=== PATIENT | male | born 1975 | race Caucasian/White ===

== ENCOUNTER 2019-09-01 19:52 | Inpatient (IN) ==
[2019-09-01] MEDS ORDERED: Furosemide 40 MG/4 ML VIAL IVP ONE (20:04)
[2019-09-01] MEDS ORDERED: Aspirin 81 MG TAB.CHEW PO STA (20:22)
[2019-09-01 20:31] LABS: Red Cell Distribution Width 17.8 % (11.5-14.5)
[2019-09-01 20:33] LABS: Hematocrit 53.4 % (37.5-50.1); Immature Platelets 8.5 % (1.1-6.1)
[2019-09-01 20:34] LABS: VBG HCO3 30 mEq/L (21-27); VBG PCO2 100 mmHg (41-51); VBG PH 7.08 pH Units (7.32-7.42); VBG PO2 45 mmHg (25-50)
[2019-09-01] MEDS ORDERED: Isovue-370 500 ML BOTTLE IVP ONE (20:47)
[2019-09-01 20:55] LABS: Hemoglobin 14.3 g/dL (12.9-16.9); Mean Corpuscular HGB Conc 26.8 g/dL (31.6-35.5); Mean Corpuscular Hemoglobin 24.7 pg (28.0-33.3); Mean Corpuscular Volume 92.2 fL (83.0-100.0); Mean Platelet Volume 10.4 fL (9.4-12.4); Nucleated Red Blood Cells 1.9 /100 WBC (0); Platelet Count 85 K/mcL (140-400); Red Blood Count 5.79 M/mcL (4.19-5.50); White Blood Count 16.2 K/mcL (4.3-11.1)
[2019-09-01 20:58] LABS: Calcium 8.4 mg/dL (8.6-10.3); Potassium 5.4 mEq/L (3.5-5.1); Troponin I 0.84 ng/mL (< 0.04)
[2019-09-01 20:59] LABS: Lymphocytes # 1.3 K/mcL (0.6-4.6); Monocytes # 0.7 K/mcL (0.0-1.3); Neutrophils # 13.9 K/mcL (1.6-8.9)
[2019-09-01 21:01] LABS: Platelet Estimate Decreased (Normal)
[2019-09-01 21:02] LABS: Hypochromasia Present (Not Present); Large Platelets Present (Not Present)
[2019-09-01 21:09] LABS: D-Dimer 54707 ng/mLFEU (0-500)
[2019-09-01] MEDS ORDERED: *HR* Heparin 5,000 UNIT/ML VIAL IVP ONE (21:12)
[2019-09-01] MEDS ORDERED: *HR* Heparin 5,000 UNIT/ML VIAL IVP PRN ×2 (21:12)
[2019-09-01] MEDS ORDERED: Heparin 25,000 UNIT/250 ML D5W 25,000 UNIT/250 ML IV.SOLN IVC SCH (21:15)
[2019-09-01 21:16] LABS: Bilirubin,Urine Small (Negative); Blood,Urine Moderate (Negative); Clarity,Urine Turbid (Clear); Color,Urine Dark Yellow (Yellow); Glucose,Urine (UA) Normal (Normal); Ketones,Urine Negative (Negative); Leukocyte Esterase,Urine Negative (Negative); Nitrite,Urine Negative (Negative); Protein,Urine 100 mg/dL (Neg-Trace); Specific Gravity,Urine 1.017 (1.010-1.025); Urobilinogen,Urine Normal (Normal)
[2019-09-01 21:19] LABS: RBC,Urine 0-3 per hpf (0-3); Squamous Epithelial Cell,Urine Many per lpf (None-Few); WBC,Urine 30-50 per hpf (0-3)
[2019-09-01 21:31] LABS: Amorphous Sediment,Urine Moderate per hpf (Few); Bacteria,Urine Few per hpf (None-Few)
[2019-09-01 21:31] LABS: Heparin anti-factor XA UFH < 0.04 IU/mL (0.30-0.70); INR 2.4; Prothrombin Time 27.3 Seconds (9.4-12.1)
[2019-09-01 21:32] LABS: Hyaline Casts,Urine Few per lpf (None-Few)
[2019-09-01 21:33] LABS: Waxy Casts,Urine Few per lpf (None Seen)
[2019-09-01 21:34] LABS: Activated Partial Thrombo Time 34.2 Seconds (26.0-36.0)
[2019-09-01] MEDS ORDERED: cefTRIAXone 1,000 MG in Water for inj. (sterile) 10 ML IVP ONE (21:35)
[2019-09-01] MEDS ORDERED: Azithromycin 500 MG in 0.9 % Sodium Chloride 250 ML IVPB ONE (21:36)
[2019-09-01 22:10] LABS: Albumin 3.3 g/dL (3.5-5.7); Albumin/Globulin Ratio 0.7 (1.1-2.2); Bilirubin,Indirect 1.1 mg/dL (0.0-1.0); Bilirubin,Total 3.1 mg/dL (0.3-1.0); Globulin 4.7 g/dL (2.4-3.5)
[2019-09-01 22:15] LABS: ABG Base Excess -1 mEq/L (-2 to 3); ABG HCO3 33 mEq/L (21-27); ABG Oxygen Saturation 99 % (95-98); ABG PCO2 99 mmHg (35-45); ABG PH 7.13 pH Units (7.32-7.45); ABG PO2 172 mmHg (85-104); ABG TCO2 36 mEq/L (20-26); Blood Gas VT 500 cc
[2019-09-01] MEDS ORDERED: Amiodarone Premix 360 MG/200 ML BAG IVC ONE (23:17)
[2019-09-01] MEDS ORDERED: Amiodarone Premix 150 MG/100 ML BAG IVPB ONE (23:17)
[2019-09-01] MEDS ORDERED: Ketamine *HR* 500 MG/10 ML MDV ONE (23:22)
[2019-09-01] MEDS ORDERED: Tetracaine/Benzocaine/Butamben 1 SPRAY AEROSOL MM ONE (23:33)
[2019-09-01] MEDS ORDERED: 0.9 % Sodium Chloride 1,000 ML ONE (23:47)
[2019-09-01] MEDS ORDERED: *HR* Midazolam HCl 5 MG/5 ML VIAL IVP ONE (23:47)
[2019-09-01] MEDS ORDERED: *HR* FentaNYL (PF) 100 MCG/2 ML VIAL ONE (23:53)
[2019-09-02] MEDS ORDERED: 0.9 % Sodium Chloride 1,000 ML ONE (01:12)
[2019-09-02] MEDS ORDERED: EPINEPHrine 1 MG in D5% in Water 250 ML IVC SCH (01:30)
[2019-09-02] MEDS ORDERED: FentaNYL (PF) 1,000 MCG in 0.9 % Sodium Chloride 80 ML IVC SCH (01:30)
[2019-09-02 01:43] LABS: Basophils % 0.2 %
[2019-09-02 01:45] LABS: Eosinophils % 0.2 %; Hematocrit 50.9 % (37.5-50.1); Immature Platelets 8.3 % (1.1-6.1); Lymphocytes # 2.8 K/mcL (0.6-4.6); Mean Corpuscular HGB Conc 27.5 g/dL (31.6-35.5); Mean Corpuscular Hemoglobin 25.1 pg (28.0-33.3); Mean Corpuscular Volume 91.4 fL (83.0-100.0); Mean Platelet Volume 11.3 fL (9.4-12.4); Monocytes # 2.1 K/mcL (0.0-1.3); Monocytes % 8.2 %; Nucleated Red Blood Cells 2.2 /100 WBC (0); Platelet Count 105 K/mcL (140-400); Red Blood Count 5.57 M/mcL (4.19-5.50); Red Cell Distribution Width 17.5 % (11.5-14.5); Segmented Neutrophils % 73.4 %; White Blood Count 25.4 K/mcL (4.3-11.1)
[2019-09-02 01:47] LABS: Basophils # 0.1 K/mcL (0.0-0.2); Eosinophils # 0.1 K/mcL (0.0-0.6); Neutrophils # 18.6 K/mcL (1.6-8.9)
[2019-09-02 01:52] LABS: ABG Base Excess 0 mEq/L (-2 to 3); ABG HCO3 33 mEq/L (21-27); ABG Oxygen Saturation 93 % (95-98); ABG PCO2 94 mmHg (35-45); ABG PH 7.15 pH Units (7.32-7.45); ABG PO2 90 mmHg (85-104); ABG TCO2 36 mEq/L (20-26); Blood Gas Modality ASSIST CONTROL; Blood Gas VT 500 cc
[2019-09-02] MEDS ORDERED: Vancomycin 2,000 MG/520 ML IV.SOLN IVPB ONE (02:00)
[2019-09-02 02:07] LABS: Anisocytosis 1+ (Not Present); Hypochromasia Present (Not Present); Platelet Estimate Slight Decrease (Normal); Polychromasia 1+ (Not Present)
[2019-09-02 02:48] LABS: Albumin 3.2 g/dL (3.5-5.7); Albumin/Globulin Ratio 0.7 (1.1-2.2); Calcium 8.3 mg/dL (8.6-10.3); Globulin 4.3 g/dL (2.4-3.5); Potassium 5.5 mEq/L (3.5-5.1); Total Protein 7.5 g/dL (6.4-8.9); Troponin I 1.23 ng/mL (< 0.04)
[2019-09-02 03:14] LABS: Magnesium 2.6 mg/dL (1.6-2.6)
[2019-09-02] MEDS ORDERED: *HR* Dextrose 50 % in Water (Syg) 50 ML SYRINGE IVP ONE (03:23)
[2019-09-02] MEDS ORDERED: Insulin Regular, Human 100 UNIT/ML SQ ONE (03:23)
[2019-09-02 03:25] VITALS: BP 104/63
== END 2019-09-02 04:10 | disposition short-term general hospital (02) | DRG 871 ==
LOC: EMEROOARM 19:52 → ICNU 09-02 02:31
PROVIDERS: ADMIT Internal Medicine; ATTEND Internal Medicine

== ENCOUNTER 2020-12-14 00:28 | Inpatient (IN) ==
[2020-12-14 02:00] LABS: Eosinophils % 0.7 %; Mean Corpuscular Volume 97.4 fL (83.0-100.0); Platelet Count 161 K/mcL (140-400)
[2020-12-14 02:01] LABS: Basophils % 0.3 %; Eosinophils # 0.1 K/mcL (0.0-0.6); Hematocrit 36.9 % (37.5-50.1); Hemoglobin 10.3 g/dL (12.9-16.9); Immature Granulocytes % 1.7 % (0-4); Lymphocytes # 1.1 K/mcL (0.6-4.6); Lymphocytes % 8.7 %; Mean Corpuscular HGB Conc 27.9 g/dL (31.6-35.5); Mean Corpuscular Hemoglobin 27.2 pg (28.0-33.3); Mean Platelet Volume 9.1 fL (9.4-12.4); Monocytes # 0.7 K/mcL (0.0-1.3); Monocytes % 5.3 %; Red Blood Count 3.79 M/mcL (4.19-5.50); Segmented Neutrophils % 83.3 %; White Blood Count 12.2 K/mcL (4.3-11.1)
[2020-12-14 02:02] LABS: Neutrophils # 10.2 K/mcL (1.6-8.9)
[2020-12-14] MEDS ORDERED: Furosemide 20 MG/2 ML VIAL IVP ONE ×2 (02:09→03:41)
[2020-12-14 02:10] LABS: INR 1.2; Prothrombin Time 14.2 Seconds (9.4-12.1)
[2020-12-14 02:12] LABS: Activated Partial Thrombo Time 33.1 Seconds (26.0-36.0)
[2020-12-14 02:30] LABS: BUN/Creatinine Ratio 15 (6-26); Blood Urea Nitrogen 22 mg/dL (6-20); Calcium 9.4 mg/dL (8.6-10.3); Carbon Dioxide > 45 mEq/L (23-29); Chloride 79 mEq/L (98-107); Glucose 274 mg/dL (70-105); Lipase 15 Units/L (11-82); Osmolality,Calculated 299 (280-300); Potassium 3.5 mEq/L (3.5-5.1); Sodium 138 mEq/L (136-145); Troponin I < 0.03 ng/mL (< 0.04); eGFR For African Americans > 60 (> 60); eGFR For Non-African Americans 52 (> 60)
[2020-12-14 02:58] LABS: ABG Base Excess > 30 mEq/L (-2 to 3); ABG HCO3 69 mEq/L (21-27); ABG Oxygen Saturation 96 % (95-98); ABG PCO2 107 mmHg (35-45); ABG PH 7.42 pH Units (7.32-7.45); ABG PO2 89 mmHg (85-104); ABG TCO2 > 50 mEq/L (20-26)
[2020-12-14 04:25] LABS: Bilirubin,Urine Negative (Negative); Blood,Urine Trace (Negative); Clarity,Urine Clear (Clear); Color,Urine Colorless (Yellow); Glucose,Urine (UA) 100 mg/dL (Normal); Ketones,Urine Negative (Negative); Leukocyte Esterase,Urine Negative (Negative); Mucus,Urine Few per lpf (None-Few); Nitrite,Urine Negative (Negative); Protein,Urine 30 mg/dL (Neg-Trace); RBC,Urine 0-3 per hpf (0-3); Specific Gravity,Urine 1.012 (1.010-1.025); Squamous Epithelial Cell,Urine Few per hpf (None-Few); Urobilinogen,Urine Normal (Normal)
[2020-12-14] MEDS ORDERED: Naloxone 0.4 MG/ML INJ IVP PRN (04:59)
[2020-12-14] MEDS ORDERED: *HR* HYDROcodone/Acet 5/325 mg TABLET PO PRN (04:59)
[2020-12-14] MEDS ORDERED: Acetaminophen 325 MG TABLET PO PRN (04:59)
[2020-12-14] MEDS ORDERED: D5% in Water 1,000 ML IVC PRN (05:03)
[2020-12-14] MEDS ORDERED: Dextrose Gel 15 GM/37.5 ML TUBE PO PRN ×2 (05:03)
[2020-12-14] MEDS ORDERED: *HR* Dextrose 50 % in Water (Vial) 50 ML VIAL IVP PRN (05:03)
[2020-12-14] MEDS ORDERED: Perflutren Lipid Microsphere 1.3 ML in 0.9 % Sodium Chloride 8.7 ML IVP PRN (05:04)
[2020-12-14] MEDS: Insulin LISPRO 300 UNITS/3 ML VIAL SUBQ SCH ×5 (07:11→23:36)
[2020-12-14] MEDS: Azithromycin 500 MG in 0.9 % Sodium Chloride 250 ML IVPB SCH (07:12)
[2020-12-14] MEDS: *HR* Heparin 5,000 UNIT/ML VIAL SQ SCH ×3 (07:13→20:58)
[2020-12-14 07:21] LABS: ABG Base Excess 25 mEq/L (-2 to 3); ABG HCO3 62 mEq/L (21-27); ABG Oxygen Saturation 91 % (95-98); ABG PCO2 124 mmHg (35-45); ABG PH 7.31 pH Units (7.32-7.45); ABG PO2 77 mmHg (85-104); ABG TCO2 > 50 mEq/L (20-26); Blood Gas Modality avaps; Blood Gas VT 500 cc
[2020-12-14 07:33] LABS: Chol/HDL Ratio 5.2 (0-4.9); Magnesium 2.3 mg/dL (1.6-2.6); Phosphorous 3.5 mg/dL (2.7-4.5)
[2020-12-14 07:34] LABS: Albumin 3.5 g/dL (3.5-5.7); Albumin/Globulin Ratio 0.7 (1.1-2.2); Bilirubin,Indirect 0.6 mg/dL (0.0-1.0); Bilirubin,Total 0.6 mg/dL (0.3-1.0); Globulin 4.8 g/dL (2.4-3.5); Total Protein 8.3 g/dL (6.4-8.9)
[2020-12-14 07:56] LABS: Folate 7.6 ng/mL (3.0-16.0)
[2020-12-14] MEDS: Furosemide 40 MG/4 ML VIAL IVP SCH ×2 (08:17→20:52)
[2020-12-14] MEDS ORDERED: methylPREDNISolone 125 MG/2 ML VIAL IVP ONE (08:59)
[2020-12-14] MEDS ORDERED: ALPRAZolam 0.25 MG TABLET PO ONE (08:59)
[2020-12-14] MEDS ORDERED: levoFLOXacin 750 MG/150 ML 750 MG/150 ML BAG IVPB SCH (09:00)
[2020-12-14] MEDS ORDERED: Furosemide 20 MG/2 ML VIAL IVP SCH (09:00)
[2020-12-14] MEDS ORDERED: Furosemide 40 MG/4 ML VIAL IVP SCH (09:00)
[2020-12-14 10:26] LABS: Estimated Average Glucose 203 mg/dl; Hemoglobin A1C 8.7 %
[2020-12-14 11:12] LABS: Procalcitonin 0.21 ng/mL (0.00-0.15)
[2020-12-14 13:08] LABS: ABG Base Excess > 30 mEq/L (-2 to 3); ABG HCO3 74 mEq/L (21-27); ABG Oxygen Saturation 72 % (95-98); ABG PCO2 101 mmHg (35-45); ABG PH 7.47 pH Units (7.32-7.45); ABG PO2 40 mmHg (85-104); ABG TCO2 > 50 mEq/L (20-26); Blood Gas Modality BiLevel; Blood Gas VT 500 cc
[2020-12-14] MEDS: MethylPREDNISolone 40 MG/ML VIAL IVP SCH ×2 (15:26→23:27)
[2020-12-14] MEDS: Piperacillin/Tazobactam 3.375 GM in 0.9 % Sodium Chloride Mini Bag 100 ML IVPB SCH (17:48)
[2020-12-14] MEDS ORDERED: *HR* FentaNYL (PF) 100 MCG/2 ML VIAL ONE (19:45)
[2020-12-14] MEDS ORDERED: *HR* Succinylcholine 200 MG/10 ML VIAL IVP ONE (19:45)
[2020-12-14] MEDS ORDERED: Lidocaine -MPF 2% 2 ML VIAL ONE (19:45)
[2020-12-14] MEDS ORDERED: *HR* Propofol 200 MG/20 ML VIAL IVP ONE (19:45)
[2020-12-14 19:59] LABS: Mean Corpuscular Volume 98.3 fL (83.0-100.0); Mean Platelet Volume 9.4 fL (9.4-12.4)
[2020-12-14] MEDS: FentaNYL (PF) 1,000 MCG/100 ML IV.SOLN IVC SCH (20:00)
[2020-12-14 20:01] LABS: Basophils % 0.3 %; Hematocrit 40.6 % (37.5-50.1); Hemoglobin 11.1 g/dL (12.9-16.9); Immature Granulocytes % 3.1 % (0-4); Lymphocytes # 1.1 K/mcL (0.6-4.6); Lymphocytes % 7.7 %; Mean Corpuscular HGB Conc 27.3 g/dL (31.6-35.5); Mean Corpuscular Hemoglobin 26.9 pg (28.0-33.3); Monocytes # 0.2 K/mcL (0.0-1.3); Monocytes % 1.6 %; Neutrophils # 12.5 K/mcL (1.6-8.9); Platelet Count 193 K/mcL (140-400); Red Blood Count 4.13 M/mcL (4.19-5.50); Red Cell Distribution Width 14.1 % (11.5-14.5); Segmented Neutrophils % 87.3 %; White Blood Count 14.3 K/mcL (4.3-11.1)
[2020-12-14 20:02] LABS: Hypochromasia Present (Not Present)
[2020-12-14 20:07] LABS: ABG Base Excess > 30 mEq/L (-2 to 3); ABG HCO3 73 mEq/L (21-27); ABG Oxygen Saturation 99 % (95-98); ABG PCO2 113 mmHg (35-45); ABG PH 7.42 pH Units (7.32-7.45); ABG PO2 172 mmHg (85-104); ABG TCO2 > 50 mEq/L (20-26)
[2020-12-14] MEDS ORDERED: Artificial Tears SOLN 15 ML BOTTLE BOTH EYES PRN (20:11)
[2020-12-14 20:31] LABS: BUN/Creatinine Ratio 19 (6-26); Blood Urea Nitrogen 22 mg/dL (6-20); Calcium 9.5 mg/dL (8.6-10.3); Carbon Dioxide 61 mEq/L (23-29); Chloride 76 mEq/L (98-107); Glucose 387 mg/dL (70-105); Osmolality,Calculated 301 (280-300); eGFR For African Americans > 60 (> 60); eGFR For Non-African Americans > 60 (> 60)
[2020-12-14 20:36] LABS: Sodium 136 mEq/L (136-145)
[2020-12-14] MEDS ORDERED: Insulin LISPRO 300 UNITS/3 ML VIAL SUBQ SCH (21:00)
[2020-12-14] MEDS: Chlorhexidine Rinse 15 ML MOUTHWASH MM SCH (21:03)
[2020-12-14] MEDS: Dexmedetomidine HCl 400 MCG/100 ML MLS IVC SCH (21:03)
[2020-12-14] MEDS ORDERED: Vancomycin 2,000 MG/520 ML IV.SOLN IVPB ONE (22:00)
[2020-12-14 22:21] LABS: ABG Base Excess > 30 mEq/L (-2 to 3); ABG HCO3 73 mEq/L (21-27); ABG Oxygen Saturation 96 % (95-98); ABG PCO2 86 mmHg (35-45); ABG PH 7.54 pH Units (7.32-7.45); ABG PO2 84 mmHg (85-104); ABG TCO2 > 50 mEq/L (20-26)
[2020-12-14] MEDS: Artificial Tears SOLN 15 ML BOTTLE BOTH EYES SCH (23:27)
[2020-12-14 23:35] LABS: Adenovirus Not Detected (Not Detect); Bordetella Pertussis Not Detected (Not Detect); Chlamydophila pneumoniae Not Detected (Not Detect); Coronavirus 229E Not Detected (Not Detect); Coronavirus HKU1 Not Detected (Not Detect); Coronavirus NL63 Not Detected (Not Detect); Coronavirus OC43 Not Detected (Not Detect); Human Metapneumovirus Not Detected (Not Detect); Human Rhinovirus/Enterovirus Not Detected (Not Detect); Influenza A Subtype 2009 H1 Not Detected (Not Detect); Influenza B Not Detected (Not Detect); Mycoplasma pneumoniae Not Detected (Not Detect); Parainfluenza Virus 1 Not Detected (Not Detect); Parainfluenza Virus 2 Not Detected (Not Detect); Parainfluenza Virus 3 Not Detected (Not Detect); Parainfluenza Virus 4 Not Detected (Not Detect); Respiratory Syncytial Virus Not Detected (Not Detect); SARS-CoV-2 Not Detected (Not Detect)
[2020-12-15] MEDS: Dexmedetomidine HCl 400 MCG/100 ML MLS IVC SCH ×3 (00:43→10:44)
[2020-12-15] MEDS: FentaNYL (PF) 1,000 MCG/100 ML IV.SOLN IVC SCH ×2 (00:49→08:50)
[2020-12-15] MEDS: Artificial Tears SOLN 15 ML BOTTLE BOTH EYES SCH ×6 (03:09→23:44)
[2020-12-15] MEDS: Insulin LISPRO 300 UNITS/3 ML VIAL SUBQ SCH ×6 (03:22→23:43)
[2020-12-15] MEDS: Levothyroxine 25 MCG TABLET PO SCH (05:16)
[2020-12-15] MEDS: *HR* Heparin 5,000 UNIT/ML VIAL SQ SCH (05:16)
[2020-12-15] MEDS: Piperacillin/Tazobactam 3.375 GM in 0.9 % Sodium Chloride Mini Bag 100 ML IVPB SCH ×2 (05:16→17:24)
[2020-12-15 05:38] LABS: ABG Base Excess 25 mEq/L (-2 to 3); ABG HCO3 51 mEq/L (21-27); ABG Oxygen Saturation 85 % (95-98); ABG PCO2 51 mmHg (35-45); ABG PH 7.61 pH Units (7.32-7.45); ABG PO2 43 mmHg (85-104); ABG TCO2 > 50 mEq/L (20-26)
[2020-12-15 06:14] LABS: Basophils % 0.1 %; Hematocrit 34.4 % (37.5-50.1); Immature Granulocytes % 1.7 % (0-4); Lymphocytes % 11.2 %; Mean Corpuscular HGB Conc 29.1 g/dL (31.6-35.5); Mean Corpuscular Hemoglobin 27.1 pg (28.0-33.3); Mean Corpuscular Volume 93.2 fL (83.0-100.0); Mean Platelet Volume 9.9 fL (9.4-12.4); Monocytes # 0.6 K/mcL (0.0-1.3); Monocytes % 7.2 %; Platelet Count 173 K/mcL (140-400); Red Blood Count 3.69 M/mcL (4.19-5.50); Red Cell Distribution Width 13.2 % (11.5-14.5); Segmented Neutrophils % 79.8 %; White Blood Count 8.7 K/mcL (4.3-11.1)
[2020-12-15] MEDS: Azithromycin 500 MG in 0.9 % Sodium Chloride 250 ML IVPB SCH (06:18)
[2020-12-15] MEDS ORDERED: acetaZOLAMIDE 500 MG in Water for inj. (sterile) 5 ML IVP ONE ×2 (06:40→10:53)
[2020-12-15 06:46] LABS: BUN/Creatinine Ratio 25 (6-26); Blood Urea Nitrogen 25 mg/dL (6-20); Calcium 9.4 mg/dL (8.6-10.3); Carbon Dioxide > 45 mEq/L (23-29); Chloride 79 mEq/L (98-107); Glucose 288 mg/dL (70-105); Magnesium 2.1 mg/dL (1.6-2.6); Osmolality,Calculated 295 (280-300); Phosphorous < 1.0 mg/dL (2.7-4.5); Potassium 3.4 mEq/L (3.5-5.1); Sodium 135 mEq/L (136-145); eGFR For African Americans > 60 (> 60); eGFR For Non-African Americans > 60 (> 60)
[2020-12-15] MEDS: MethylPREDNISolone 40 MG/ML VIAL IVP SCH ×2 (07:54→17:28)
[2020-12-15] MEDS: Pantoprazole 40 MG VIAL IVP SCH (07:54)
[2020-12-15] MEDS: Chlorhexidine Rinse 15 ML MOUTHWASH MM SCH ×2 (07:54→21:09)
[2020-12-15] MEDS: Furosemide 40 MG/4 ML VIAL IVP SCH ×2 (07:54→21:22)
[2020-12-15 09:48] LABS: ABG Base Excess > 30 mEq/L (-2 to 3); ABG HCO3 59 mEq/L (21-27); ABG Oxygen Saturation 90 % (95-98); ABG PCO2 70 mmHg (35-45); ABG PH 7.53 pH Units (7.32-7.45); ABG PO2 55 mmHg (85-104); ABG TCO2 > 50 mEq/L (20-26); Blood Gas VT 420 cc
[2020-12-15] MEDS: Vancomycin 1,750 MG/517.5 ML IV.SOLN IVPB SCH ×2 (09:50→21:10)
[2020-12-15] MEDS ORDERED: Potassium Phosphate 44 MEQ in 0.9 % Sodium Chloride 250 ML IVPB PRN (10:49)
[2020-12-15 11:42] LABS: ABG Base Excess 25 mEq/L (-2 to 3); ABG HCO3 52 mEq/L (21-27); ABG Oxygen Saturation 96 % (95-98); ABG PCO2 67 mmHg (35-45); ABG PO2 80 mmHg (85-104); ABG TCO2 > 50 mEq/L (20-26); Blood Gas VT 350 cc
[2020-12-15 12:48] LABS: Basophils % 0.2 %; Immature Granulocytes % 1.6 % (0-4); Red Cell Distribution Width 13.3 % (11.5-14.5)
[2020-12-15 12:50] LABS: Hematocrit 35.8 % (37.5-50.1); Hemoglobin 10.3 g/dL (12.9-16.9); Lymphocytes # 0.9 K/mcL (0.6-4.6); Mean Corpuscular HGB Conc 28.8 g/dL (31.6-35.5); Mean Corpuscular Hemoglobin 26.9 pg (28.0-33.3); Mean Corpuscular Volume 93.5 fL (83.0-100.0); Mean Platelet Volume 9.7 fL (9.4-12.4); Monocytes # 0.7 K/mcL (0.0-1.3); Monocytes % 7.5 %; Neutrophils # 7.4 K/mcL (1.6-8.9); Platelet Count 172 K/mcL (140-400); Red Blood Count 3.83 M/mcL (4.19-5.50); Segmented Neutrophils % 80.7 %; White Blood Count 9.2 K/mcL (4.3-11.1)
[2020-12-15] MEDS ORDERED: *HR* Heparin 5,000 UNIT/ML VIAL IVP PRN ×2 (13:08)
[2020-12-15] MEDS ORDERED: *HR* Heparin 5,000 UNIT/ML VIAL IVP ONE (13:08)
[2020-12-15] MEDS: Insulin DETEMIR 100 UNIT/ML X5UNITS SUBQ SCH ×2 (13:20→21:09)
[2020-12-15] MEDS: Heparin 25,000UNIT/250ML 1/2NS 25,000 UNIT/250 ML IV.SOLN IVC SCH ×3 (13:49→23:56)
[2020-12-15 14:04] LABS: Mean Corpuscular Volume 94.3 fL (83.0-100.0)
[2020-12-15 14:05] LABS: Hematocrit 34.9 % (37.5-50.1); Hemoglobin 9.9 g/dL (12.9-16.9); Mean Corpuscular HGB Conc 28.4 g/dL (31.6-35.5); Mean Corpuscular Hemoglobin 26.8 pg (28.0-33.3); Mean Platelet Volume 9.5 fL (9.4-12.4); Platelet Count 178 K/mcL (140-400); Red Cell Distribution Width 13.6 % (11.5-14.5); White Blood Count 9.7 K/mcL (4.3-11.1)
[2020-12-15 14:19] LABS: BUN/Creatinine Ratio 22 (6-26); Blood Urea Nitrogen 26 mg/dL (6-20); Carbon Dioxide > 45 mEq/L (23-29); Chloride 81 mEq/L (98-107); Glucose 288 mg/dL (70-105); Osmolality,Calculated 295 (280-300); Potassium 3.4 mEq/L (3.5-5.1); Sodium 135 mEq/L (136-145); eGFR For African Americans > 60 (> 60); eGFR For Non-African Americans > 60 (> 60)
[2020-12-15 14:29] LABS: Heparin anti-factor XA UFH < 0.04 IU/mL (0.30-0.70); INR 1.2; Prothrombin Time 14.2 Seconds (9.4-12.1)
[2020-12-15 14:32] LABS: Calcium 9.1 mg/dL (8.6-10.3)
[2020-12-15] MEDS: FentaNYL (PF) 2,500 MCG/50 ML IV.SOLN IVC SCH ×2 (16:45→23:56)
[2020-12-16] MEDS: Dexmedetomidine HCl 400 MCG/100 ML MLS IVC SCH ×3 (03:07→17:27)
[2020-12-16] MEDS: Artificial Tears SOLN 15 ML BOTTLE BOTH EYES SCH ×6 (03:08→23:51)
[2020-12-16] MEDS: Insulin LISPRO 300 UNITS/3 ML VIAL SUBQ SCH ×6 (03:18→23:57)
[2020-12-16 03:54] LABS: Basophils % 0.2 %; Eosinophils % 0.2 %; Hematocrit 33.3 % (37.5-50.1); Immature Granulocytes % 1.2 % (0-4); Lymphocytes # 1.3 K/mcL (0.6-4.6); Lymphocytes % 11.9 %; Mean Corpuscular Hemoglobin 27.1 pg (28.0-33.3); Mean Corpuscular Volume 90.2 fL (83.0-100.0); Mean Platelet Volume 9.5 fL (9.4-12.4); Monocytes # 0.8 K/mcL (0.0-1.3); Monocytes % 7.6 %; Neutrophils # 8.5 K/mcL (1.6-8.9); Platelet Count 171 K/mcL (140-400); Red Blood Count 3.69 M/mcL (4.19-5.50); Red Cell Distribution Width 13.9 % (11.5-14.5); Segmented Neutrophils % 78.9 %; White Blood Count 10.7 K/mcL (4.3-11.1)
[2020-12-16 04:21] LABS: BUN/Creatinine Ratio 25 (6-26); Blood Urea Nitrogen 27 mg/dL (6-20); Carbon Dioxide 44 mEq/L (23-29); Chloride 86 mEq/L (98-107); Glucose 196 mg/dL (70-105); Osmolality,Calculated 291 (280-300); Potassium 3.1 mEq/L (3.5-5.1); Sodium 135 mEq/L (136-145); eGFR For African Americans > 60 (> 60); eGFR For Non-African Americans > 60 (> 60)
[2020-12-16 04:31] LABS: ABG Base Excess 25 mEq/L (-2 to 3); ABG HCO3 52 mEq/L (21-27); ABG Oxygen Saturation 93 % (95-98); ABG PCO2 67 mmHg (35-45); ABG PO2 66 mmHg (85-104); ABG TCO2 > 50 mEq/L (20-26); Blood Gas Modality ASSIST CONTROL; Blood Gas VT 380 cc
[2020-12-16] MEDS: MethylPREDNISolone 40 MG/ML VIAL IVP SCH ×2 (05:12→18:00)
[2020-12-16] MEDS: Azithromycin 500 MG in 0.9 % Sodium Chloride 250 ML IVPB SCH (05:13)
[2020-12-16] MEDS: Levothyroxine 25 MCG TABLET PO SCH (05:14)
[2020-12-16] MEDS: Piperacillin/Tazobactam 3.375 GM in 0.9 % Sodium Chloride Mini Bag 100 ML IVPB SCH (05:14)
[2020-12-16] MEDS ORDERED: Piperacillin/Tazobactam 3.375 GM VIAL ONE (05:26)
[2020-12-16] MEDS ORDERED: Azithromycin 500 MG VIAL ONE (05:27)
[2020-12-16 05:48] LABS: Phosphorous 3.3 mg/dL (2.7-4.5)
[2020-12-16] MEDS: Furosemide 40 MG/4 ML VIAL IVP SCH ×2 (07:27→20:29)
[2020-12-16] MEDS: Chlorhexidine Rinse 15 ML MOUTHWASH MM SCH ×2 (07:27→20:29)
[2020-12-16] MEDS: Pantoprazole 40 MG VIAL IVP SCH (07:27)
[2020-12-16] MEDS: Insulin DETEMIR 100 UNIT/ML X5UNITS SUBQ SCH ×2 (08:02→22:19)
[2020-12-16] MEDS ORDERED: acetaZOLAMIDE 500 MG in Water for inj. (sterile) 5 ML IVP ONE (09:18)
[2020-12-16] MEDS: FentaNYL (PF) 2,500 MCG/50 ML IV.SOLN IVC SCH ×2 (11:45→23:23)
[2020-12-16] MEDS ORDERED: *HR* Enoxaparin 40 MG/0.4 ML SYRINGE SQ SCH (18:00)
[2020-12-16 18:22] LABS: Magnesium 2.1 mg/dL (1.6-2.6); Potassium 3.2 mEq/L (3.5-5.1)
[2020-12-17] MEDS: Dexmedetomidine HCl 400 MCG/100 ML MLS IVC SCH ×3 (02:05→15:56)
[2020-12-17] MEDS: Artificial Tears SOLN 15 ML BOTTLE BOTH EYES SCH ×6 (03:49→23:50)
[2020-12-17] MEDS: Insulin LISPRO 300 UNITS/3 ML VIAL SUBQ SCH ×6 (03:58→23:50)
[2020-12-17 04:00] LABS: VBG Ionized Calcium 1.12 mmol/L (1.15-1.35)
[2020-12-17 04:15] LABS: Basophils % 0.2 %; Eosinophils # 0.1 K/mcL (0.0-0.6); Eosinophils % 0.6 %; Hematocrit 34.6 % (37.5-50.1); Hemoglobin 10.5 g/dL (12.9-16.9); Immature Granulocytes % 0.8 % (0-4); Lymphocytes # 1.6 K/mcL (0.6-4.6); Lymphocytes % 15.6 %; Mean Corpuscular HGB Conc 30.3 g/dL (31.6-35.5); Mean Corpuscular Hemoglobin 26.9 pg (28.0-33.3); Mean Corpuscular Volume 88.5 fL (83.0-100.0); Mean Platelet Volume 9.7 fL (9.4-12.4); Monocytes # 0.7 K/mcL (0.0-1.3); Monocytes % 6.8 %; Neutrophils # 7.7 K/mcL (1.6-8.9); Platelet Count 182 K/mcL (140-400); Red Blood Count 3.91 M/mcL (4.19-5.50); Red Cell Distribution Width 14.2 % (11.5-14.5); White Blood Count 10.1 K/mcL (4.3-11.1)
[2020-12-17 04:24] LABS: INR 1.2
[2020-12-17 04:33] LABS: BUN/Creatinine Ratio 22 (6-26); Blood Urea Nitrogen 28 mg/dL (6-20); Calcium 8.9 mg/dL (8.6-10.3); Carbon Dioxide 38 mEq/L (23-29); Chloride 90 mEq/L (98-107); Glucose 190 mg/dL (70-105); Osmolality,Calculated 291 (280-300); Phosphorous 3.9 mg/dL (2.7-4.5); Potassium 3.3 mEq/L (3.5-5.1); Sodium 135 mEq/L (136-145); eGFR For African Americans > 60 (> 60); eGFR For Non-African Americans > 60 (> 60)
[2020-12-17 04:45] LABS: ABG Base Excess 14 mEq/L (-2 to 3); ABG HCO3 39 mEq/L (21-27); ABG Oxygen Saturation 98 % (95-98); ABG PCO2 47 mmHg (35-45); ABG PH 7.53 pH Units (7.32-7.45); ABG PO2 102 mmHg (85-104); ABG TCO2 40 mEq/L (20-26); Blood Gas Modality ASSIST CONTROL; Blood Gas VT 380 cc
[2020-12-17] MEDS: MethylPREDNISolone 40 MG/ML VIAL IVP SCH ×2 (05:13→19:12)
[2020-12-17] MEDS: Levothyroxine 25 MCG TABLET PO SCH (05:14)
[2020-12-17 06:22] LABS: Magnesium 2.3 mg/dL (1.6-2.6)
[2020-12-17] MEDS: Pantoprazole 40 MG VIAL IVP SCH (09:15)
[2020-12-17] MEDS: Chlorhexidine Rinse 15 ML MOUTHWASH MM SCH ×2 (09:18→20:13)
[2020-12-17] MEDS: Insulin DETEMIR 100 UNIT/ML X5UNITS SUBQ SCH ×2 (09:18→22:37)
[2020-12-17] MEDS: Furosemide 40 MG/4 ML VIAL IVP SCH (09:18)
[2020-12-17] MEDS: FentaNYL (PF) 2,500 MCG/50 ML IV.SOLN IVC SCH (12:15)
[2020-12-17 13:05] LABS: BUN/Creatinine Ratio 24 (6-26); Blood Urea Nitrogen 30 mg/dL (6-20); Calcium 9.1 mg/dL (8.6-10.3); Carbon Dioxide 36 mEq/L (23-29); Chloride 90 mEq/L (98-107); Glucose 253 mg/dL (70-105); Osmolality,Calculated 293 (280-300); Potassium 3.7 mEq/L (3.5-5.1); Sodium 134 mEq/L (136-145); eGFR For African Americans > 60 (> 60); eGFR For Non-African Americans > 60 (> 60)
[2020-12-17] MEDS ORDERED: Lidocaine/EPI 1:100k 1% 50 ML VIAL ONE (16:19)
[2020-12-17] MEDS ORDERED: Lidocaine Jelly 6ml 1 APPL/6 ML JEL.PF.APP ONE (16:19)
[2020-12-17] MEDS ORDERED: *HR* Propofol 200 MG/20 ML VIAL IVP ONE (16:22)
[2020-12-17] MEDS ORDERED: *HR* Succinylcholine 200 MG/10 ML VIAL IVP ONE ×2 (16:23)
[2020-12-17] MEDS ORDERED: *HR* Rocuronium Bromide 50 MG/5 ML VIAL ONE (16:23)
[2020-12-17] MEDS ORDERED: Lidocaine -MPF 2% 2 ML VIAL ONE (16:23)
[2020-12-17] MEDS ORDERED: *HR* FentaNYL (PF) 100 MCG/2 ML VIAL ONE ×2 (16:27→17:48)
[2020-12-17] MEDS ORDERED: *HR* Midazolam HCl 2 MG/2 ML VIAL ONE ×2 (16:27→17:24)
[2020-12-17] MEDS ORDERED: *HR* HYDROmorphone PF 0.5 MG/0.5 ML SYRINGE IVP PRN (16:46)
[2020-12-17 20:11] LABS: ABG Base Excess 8 mEq/L (-2 to 3); ABG HCO3 34 mEq/L (21-27); ABG Oxygen Saturation 96 % (95-98); ABG PCO2 54 mmHg (35-45); ABG PH 7.41 pH Units (7.32-7.45); ABG PO2 85 mmHg (85-104); ABG TCO2 36 mEq/L (20-26); Blood Gas VT 450 cc
[2020-12-17] MEDS ORDERED: *HR* Midazolam HCl 5 MG/5 ML VIAL IVP ONE (20:58)
[2020-12-18] MEDS: FentaNYL (PF) 2,500 MCG/50 ML IV.SOLN IVC SCH (02:20)
[2020-12-18] MEDS: Dexmedetomidine HCl 400 MCG/100 ML MLS IVC SCH ×3 (03:02→18:44)
[2020-12-18 03:34] LABS: Basophils % 0.2 %; Eosinophils % 0.2 %; Hematocrit 35.6 % (37.5-50.1); Hemoglobin 10.8 g/dL (12.9-16.9); Immature Granulocytes % 0.6 % (0-4); Mean Corpuscular HGB Conc 30.3 g/dL (31.6-35.5); Mean Corpuscular Hemoglobin 26.9 pg (28.0-33.3); Mean Corpuscular Volume 88.6 fL (83.0-100.0); Mean Platelet Volume 9.8 fL (9.4-12.4); Monocytes # 0.6 K/mcL (0.0-1.3); Monocytes % 5.1 %; Neutrophils # 10.7 K/mcL (1.6-8.9); Platelet Count 146 K/mcL (140-400); Red Blood Count 4.02 M/mcL (4.19-5.50); Red Cell Distribution Width 14.3 % (11.5-14.5); Segmented Neutrophils % 85.9 %; White Blood Count 12.4 K/mcL (4.3-11.1)
[2020-12-18 03:35] LABS: VBG Ionized Calcium 1.04 mmol/L (1.15-1.35)
[2020-12-18] MEDS: Artificial Tears SOLN 15 ML BOTTLE BOTH EYES SCH ×6 (03:51→22:51)
[2020-12-18 03:54] LABS: BUN/Creatinine Ratio 25 (6-26); Blood Urea Nitrogen 31 mg/dL (6-20); Calcium 8.6 mg/dL (8.6-10.3); Carbon Dioxide 34 mEq/L (23-29); Chloride 92 mEq/L (98-107); Glucose 227 mg/dL (70-105); Magnesium 2.2 mg/dL (1.6-2.6); Osmolality,Calculated 288 (280-300); Phosphorous 4.3 mg/dL (2.7-4.5); Potassium 3.6 mEq/L (3.5-5.1); Sodium 132 mEq/L (136-145); eGFR For African Americans > 60 (> 60); eGFR For Non-African Americans > 60 (> 60)
[2020-12-18] MEDS: Insulin LISPRO 300 UNITS/3 ML VIAL SUBQ SCH ×6 (03:58→23:59)
[2020-12-18 04:54] LABS: ABG Base Excess 8 mEq/L (-2 to 3); ABG HCO3 35 mEq/L (21-27); ABG Oxygen Saturation 95 % (95-98); ABG PCO2 60 mmHg (35-45); ABG PH 7.38 pH Units (7.32-7.45); ABG PO2 81 mmHg (85-104); ABG TCO2 37 mEq/L (20-26); Blood Gas VT 400 cc
[2020-12-18] MEDS: Levothyroxine 25 MCG TABLET PO SCH (05:37)
[2020-12-18] MEDS: MethylPREDNISolone 40 MG/ML VIAL IVP SCH ×2 (05:53→17:42)
[2020-12-18] MEDS ORDERED: Calcium Gluconate 1gm/50mL 1 GM/50 ML BAG IVPB PRN (06:03)
[2020-12-18] MEDS: Furosemide 20 MG/2 ML VIAL IVP SCH ×3 (07:23→20:19)
[2020-12-18] MEDS: Calcium Gluconate 1gm/50mL 1 GM/50 ML BAG IVPB PRN (07:23)
[2020-12-18] MEDS: Chlorhexidine Rinse 15 ML MOUTHWASH MM SCH ×2 (09:31→20:19)
[2020-12-18] MEDS: Pantoprazole 40 MG VIAL IVP SCH (09:31)
[2020-12-18] MEDS: Insulin DETEMIR 100 UNIT/ML X5UNITS SUBQ SCH ×2 (09:43→20:19)
[2020-12-18] MEDS ORDERED: Ondansetron 4 MG/2 ML VIAL IVP PRN (10:23)
[2020-12-18] MEDS: Morphine Sulfate 2 MG/ML SYRINGE IVP PRN (22:55)
[2020-12-19] MEDS: Artificial Tears SOLN 15 ML BOTTLE BOTH EYES SCH ×6 (02:54→23:35)
[2020-12-19] MEDS: Morphine Sulfate 2 MG/ML SYRINGE IVP PRN ×4 (02:55→20:10)
[2020-12-19] MEDS: Insulin LISPRO 300 UNITS/3 ML VIAL SUBQ SCH ×5 (04:16→19:52)
[2020-12-19] MEDS: Levothyroxine 25 MCG TABLET PO SCH (04:17)
[2020-12-19 05:02] LABS: BUN/Creatinine Ratio 26 (6-26); Blood Urea Nitrogen 35 mg/dL (6-20); Calcium 8.8 mg/dL (8.6-10.3); Carbon Dioxide 34 mEq/L (23-29); Chloride 94 mEq/L (98-107); Glucose 131 mg/dL (70-105); Osmolality,Calculated 296 (280-300); Potassium 2.9 mEq/L (3.5-5.1); Sodium 138 mEq/L (136-145); eGFR For African Americans > 60 (> 60); eGFR For Non-African Americans 56 (> 60)
[2020-12-19] MEDS: MethylPREDNISolone 40 MG/ML VIAL IVP SCH ×2 (05:24→17:54)
[2020-12-19] MEDS ORDERED: Potassium Chloride 40 MEQ/200 ML BAG IVPB PRN (06:14)
[2020-12-19] MEDS: Furosemide 20 MG/2 ML VIAL IVP SCH (07:41)
[2020-12-19] MEDS: Chlorhexidine Rinse 15 ML MOUTHWASH MM SCH ×2 (07:41→19:55)
[2020-12-19] MEDS: Dexmedetomidine HCl 400 MCG/100 ML MLS IVC SCH ×4 (07:41→21:30)
[2020-12-19] MEDS: Pantoprazole 40 MG VIAL IVP SCH (07:41)
[2020-12-19] MEDS: Insulin DETEMIR 100 UNIT/ML X5UNITS SUBQ SCH ×2 (08:00→19:55)
[2020-12-19 15:48] LABS: VBG Ionized Calcium 1.09 mmol/L (1.15-1.35)
[2020-12-19 16:03] LABS: Blood Urea Nitrogen 33 mg/dL (6-20); Calcium 8.9 mg/dL (8.6-10.3); Carbon Dioxide 37 mEq/L (23-29); Chloride 94 mEq/L (98-107); Glucose 136 mg/dL (70-105); Magnesium 2.7 mg/dL (1.6-2.6); Osmolality,Calculated 293 (280-300); Potassium 3.5 mEq/L (3.5-5.1); Sodium 137 mEq/L (136-145)
[2020-12-19] MEDS: Calcium Gluconate 1gm/50mL 1 GM/50 ML BAG IVPB PRN (16:17)
[2020-12-19 16:28] LABS: BUN/Creatinine Ratio 25 (6-26); eGFR For African Americans > 60 (> 60); eGFR For Non-African Americans 58 (> 60)
[2020-12-19] MEDS ORDERED: Artificial Tears SOLN 15 ML BOTTLE BOTH EYES PRN (16:40)
[2020-12-19] MEDS ORDERED: Acetaminophen 325 MG TABLET PO PRN (16:40)
[2020-12-19] MEDS ORDERED: Dextrose Gel 15 GM/37.5 ML TUBE PO PRN ×2 (16:40)
[2020-12-19] MEDS ORDERED: *HR* HYDROcodone/Acet 5/325 mg TABLET PO PRN (16:40)
[2020-12-19] MEDS ORDERED: D5% in Water 1,000 ML IVC PRN (16:40)
[2020-12-19] MEDS ORDERED: Ondansetron 4 MG/2 ML VIAL IVP PRN (16:40)
[2020-12-19] MEDS ORDERED: Potassium Phosphate 44 MEQ in 0.9 % Sodium Chloride 250 ML IVPB PRN (16:40)
[2020-12-19] MEDS ORDERED: Naloxone 0.4 MG/ML INJ IVP PRN (16:40)
[2020-12-19] MEDS ORDERED: Calcium Gluconate 1gm/50mL 1 GM/50 ML BAG IVPB PRN (16:40)
[2020-12-19] MEDS ORDERED: *HR* Dextrose 50 % in Water (Vial) 50 ML VIAL IVP PRN (16:40)
[2020-12-19] MEDS: *HR* Enoxaparin 40 MG/0.4 ML SYRINGE SQ SCH (17:54)
[2020-12-20] MEDS: Insulin LISPRO 300 UNITS/3 ML VIAL SUBQ SCH ×6 (00:36→21:02)
[2020-12-20] MEDS: Dexmedetomidine HCl 400 MCG/100 ML MLS IVC SCH ×4 (03:35→23:02)
[2020-12-20] MEDS: Morphine Sulfate 2 MG/ML SYRINGE IVP PRN ×4 (03:36→23:22)
[2020-12-20] MEDS: Artificial Tears SOLN 15 ML BOTTLE BOTH EYES SCH ×2 (03:36→08:59)
[2020-12-20 04:13] LABS: Basophils % 0.3 %; Eosinophils # 0.1 K/mcL (0.0-0.6); Eosinophils % 0.6 %; Hematocrit 39.4 % (37.5-50.1); Hemoglobin 11.8 g/dL (12.9-16.9); Immature Granulocytes % 0.4 % (0-4); Lymphocytes # 2.1 K/mcL (0.6-4.6); Lymphocytes % 21.3 %; Mean Corpuscular HGB Conc 29.9 g/dL (31.6-35.5); Mean Corpuscular Hemoglobin 26.4 pg (28.0-33.3); Mean Corpuscular Volume 88.1 fL (83.0-100.0); Mean Platelet Volume 10.2 fL (9.4-12.4); Monocytes # 0.8 K/mcL (0.0-1.3); Monocytes % 7.8 %; Neutrophils # 6.9 K/mcL (1.6-8.9); Platelet Count 138 K/mcL (140-400); Red Blood Count 4.47 M/mcL (4.19-5.50); Red Cell Distribution Width 14.3 % (11.5-14.5); Segmented Neutrophils % 69.6 %; White Blood Count 9.9 K/mcL (4.3-11.1)
[2020-12-20 04:13] LABS: VBG Ionized Calcium 1.04 mmol/L (1.15-1.35)
[2020-12-20 04:25] LABS: BUN/Creatinine Ratio 25 (6-26); Blood Urea Nitrogen 30 mg/dL (6-20); Calcium 8.9 mg/dL (8.6-10.3); Carbon Dioxide 32 mEq/L (23-29); Chloride 93 mEq/L (98-107); Glucose 164 mg/dL (70-105); Magnesium 2.5 mg/dL (1.6-2.6); Osmolality,Calculated 288 (280-300); Phosphorous 2.5 mg/dL (2.7-4.5); Potassium 3.6 mEq/L (3.5-5.1); Sodium 134 mEq/L (136-145); eGFR For African Americans > 60 (> 60); eGFR For Non-African Americans > 60 (> 60)
[2020-12-20] MEDS: *HR* Enoxaparin 40 MG/0.4 ML SYRINGE SQ SCH ×2 (05:44→16:31)
[2020-12-20] MEDS: MethylPREDNISolone 40 MG/ML VIAL IVP SCH ×2 (05:45→16:30)
[2020-12-20] MEDS: Levothyroxine 25 MCG TABLET PO SCH (05:45)
[2020-12-20] MEDS: Calcium Gluconate 1gm/50mL 1 GM/50 ML BAG IVPB PRN ×2 (05:55→22:42)
[2020-12-20] MEDS: Chlorhexidine Rinse 15 ML MOUTHWASH MM SCH ×2 (08:56→21:01)
[2020-12-20] MEDS: Insulin DETEMIR 100 UNIT/ML X5UNITS SUBQ SCH ×2 (08:57→21:35)
[2020-12-20] MEDS: Pantoprazole 40 MG VIAL IVP SCH (08:57)
[2020-12-20] MEDS: D5% in 0.9% NACL w KCl 20 MEQ/1,000 ML MLS IVC SCH (13:12)
[2020-12-20 21:42] LABS: VBG Ionized Calcium 1.08 mmol/L (1.15-1.35)
[2020-12-20 22:03] LABS: Phosphorous 4.1 mg/dL (2.7-4.5); Potassium 4.2 mEq/L (3.5-5.1)
[2020-12-21] MEDS: Insulin LISPRO 300 UNITS/3 ML VIAL SUBQ SCH ×7 (01:03→23:37)
[2020-12-21] MEDS: Morphine Sulfate 2 MG/ML SYRINGE IVP PRN ×5 (04:33→23:37)
[2020-12-21] MEDS: MethylPREDNISolone 40 MG/ML VIAL IVP SCH ×2 (05:38→16:30)
[2020-12-21] MEDS: *HR* Enoxaparin 40 MG/0.4 ML SYRINGE SQ SCH ×2 (05:40→16:30)
[2020-12-21] MEDS ORDERED: Levothyroxine Sodium 100 MCG VIAL IVP ONE (06:00)
[2020-12-21] MEDS: Chlorhexidine Rinse 15 ML MOUTHWASH MM SCH ×2 (08:14→21:26)
[2020-12-21] MEDS: Pantoprazole 40 MG VIAL IVP SCH (08:14)
[2020-12-21] MEDS: Insulin DETEMIR 100 UNIT/ML X5UNITS SUBQ SCH ×2 (08:14→21:26)
[2020-12-21 08:39] LABS: Basophils % 0.2 %; Eosinophils % 0.3 %; Hematocrit 38.8 % (37.5-50.1); Hemoglobin 11.4 g/dL (12.9-16.9); Immature Granulocytes % 0.4 % (0-4); Lymphocytes # 1.2 K/mcL (0.6-4.6); Mean Corpuscular HGB Conc 29.4 g/dL (31.6-35.5); Mean Corpuscular Volume 88.4 fL (83.0-100.0); Mean Platelet Volume 10.5 fL (9.4-12.4); Monocytes # 0.7 K/mcL (0.0-1.3); Monocytes % 6.4 %; Neutrophils # 8.6 K/mcL (1.6-8.9); Platelet Count 160 K/mcL (140-400); Red Blood Count 4.39 M/mcL (4.19-5.50); Red Cell Distribution Width 14.2 % (11.5-14.5); Segmented Neutrophils % 81.7 %; White Blood Count 10.5 K/mcL (4.3-11.1)
[2020-12-21 09:00] LABS: Alanine Aminotransferase 31 Units/L (7-52); Albumin 3.4 g/dL (3.5-5.7); Albumin/Globulin Ratio 0.8 (1.1-2.2); Alkaline Phosphatase 68 Units/L (34-104); Aspartate Amino Transferase 21 Units/L (13-39); BUN/Creatinine Ratio 24 (6-26); Bilirubin,Direct 0.2 mg/dL (0.0-0.2); Bilirubin,Indirect 0.4 mg/dL (0.0-1.0); Bilirubin,Total 0.6 mg/dL (0.3-1.0); Blood Urea Nitrogen 28 mg/dL (6-20); Carbon Dioxide 34 mEq/L (23-29); Chloride 96 mEq/L (98-107); Globulin 4.3 g/dL (2.4-3.5); Glucose 200 mg/dL (70-105); Magnesium 2.4 mg/dL (1.6-2.6); Osmolality,Calculated 291 (280-300); Phosphorous 2.5 mg/dL (2.7-4.5); Potassium 3.9 mEq/L (3.5-5.1); Sodium 135 mEq/L (136-145); Total Protein 7.7 g/dL (6.4-8.9); eGFR For African Americans > 60 (> 60); eGFR For Non-African Americans > 60 (> 60)
[2020-12-21 10:22] LABS: Calcium 8.7 mg/dL (8.6-10.3)
[2020-12-21] MEDS: D5% in 0.9% NACL w KCl 20 MEQ/1,000 ML MLS IVC SCH (12:45)
[2020-12-21] MEDS ORDERED: Acetaminophen IV 1,000 MG/100 ML BAG IVPB ONE (18:28)
[2020-12-21 18:59] LABS: VBG Ionized Calcium 1.06 mmol/L (1.15-1.35)
[2020-12-21] MEDS: Calcium Gluconate 1gm/50mL 1 GM/50 ML BAG IVPB PRN (20:01)
[2020-12-22] MEDS ORDERED: Morphine Sulfate 2 MG/ML SYRINGE IVP ONE (00:03)
[2020-12-22] MEDS: Insulin LISPRO 300 UNITS/3 ML VIAL SUBQ SCH ×5 (04:40→21:08)
[2020-12-22] MEDS: *HR* Enoxaparin 40 MG/0.4 ML SYRINGE SQ SCH ×2 (05:50→17:44)
[2020-12-22] MEDS: MethylPREDNISolone 40 MG/ML VIAL IVP SCH ×2 (05:51→17:44)
[2020-12-22] MEDS: Morphine Sulfate 2 MG/ML SYRINGE IVP PRN ×5 (06:01→22:34)
[2020-12-22 06:52] LABS: BUN/Creatinine Ratio 21 (6-26); Blood Urea Nitrogen 23 mg/dL (6-20); Carbon Dioxide 32 mEq/L (23-29); Chloride 99 mEq/L (98-107); Glucose 120 mg/dL (70-105); Magnesium 2.3 mg/dL (1.6-2.6); Osmolality,Calculated 291 (280-300); Phosphorous 2.1 mg/dL (2.7-4.5); Potassium 3.6 mEq/L (3.5-5.1); Sodium 138 mEq/L (136-145); eGFR For African Americans > 60 (> 60); eGFR For Non-African Americans > 60 (> 60)
[2020-12-22] MEDS: Chlorhexidine Rinse 15 ML MOUTHWASH MM SCH ×2 (08:10→21:08)
[2020-12-22] MEDS: Pantoprazole 40 MG VIAL IVP SCH (08:10)
[2020-12-22] MEDS: Insulin DETEMIR 100 UNIT/ML X5UNITS SUBQ SCH ×2 (10:15→21:08)
[2020-12-22 10:33] LABS: VBG HCO3 35 mEq/L (21-27); VBG Ionized Calcium 1.18 mmol/L (1.15-1.35); VBG PCO2 72 mmHg (41-51); VBG PH 7.29 pH Units (7.32-7.42); VBG PO2 54 mmHg (25-50)
[2020-12-22] MEDS: D5% in 0.9% NACL w KCl 20 MEQ/1,000 ML MLS IVC SCH (11:01)
[2020-12-22 12:13] LABS: Basophils % 0.3 %; Eosinophils # 0.1 K/mcL (0.0-0.6); Eosinophils % 0.7 %; Hemoglobin 11.8 g/dL (12.9-16.9); Immature Granulocytes % 0.4 % (0-4); Lymphocytes # 2.3 K/mcL (0.6-4.6); Lymphocytes % 21.3 %; Mean Corpuscular HGB Conc 29.5 g/dL (31.6-35.5); Mean Corpuscular Hemoglobin 26.2 pg (28.0-33.3); Mean Corpuscular Volume 88.9 fL (83.0-100.0); Mean Platelet Volume 10.8 fL (9.4-12.4); Monocytes # 1.2 K/mcL (0.0-1.3); Monocytes % 11.2 %; Neutrophils # 7.1 K/mcL (1.6-8.9); Platelet Count 226 K/mcL (140-400); Red Cell Distribution Width 14.3 % (11.5-14.5); Segmented Neutrophils % 66.1 %; White Blood Count 10.7 K/mcL (4.3-11.1)
[2020-12-22] MEDS ORDERED: Potassium Phosphate 44 MEQ in 0.9 % Sodium Chloride 250 ML IVPB ONE (15:00)
[2020-12-22] MEDS: Dexmedetomidine HCl 400 MCG/100 ML MLS IVC SCH (16:30)
[2020-12-23] MEDS: Insulin LISPRO 300 UNITS/3 ML VIAL SUBQ SCH ×7 (00:14→23:55)
[2020-12-23 02:19] LABS: VBG HCO3 32 mEq/L (21-27); VBG PCO2 64 mmHg (41-51); VBG PH 7.31 pH Units (7.32-7.42); VBG PO2 73 mmHg (25-50)
[2020-12-23 02:39] LABS: Basophils % 0.3 %; Eosinophils % 0.4 %; Hematocrit 40.9 % (37.5-50.1); Hemoglobin 11.9 g/dL (12.9-16.9); Immature Granulocytes % 0.4 % (0-4); Lymphocytes # 1.7 K/mcL (0.6-4.6); Lymphocytes % 16.6 %; Mean Corpuscular HGB Conc 29.1 g/dL (31.6-35.5); Mean Corpuscular Hemoglobin 26.3 pg (28.0-33.3); Mean Corpuscular Volume 90.5 fL (83.0-100.0); Mean Platelet Volume 10.3 fL (9.4-12.4); Monocytes % 9.7 %; Neutrophils # 7.3 K/mcL (1.6-8.9); Platelet Count 224 K/mcL (140-400); Red Blood Count 4.52 M/mcL (4.19-5.50); Red Cell Distribution Width 14.2 % (11.5-14.5); Segmented Neutrophils % 72.6 %
[2020-12-23 03:00] LABS: BUN/Creatinine Ratio 16 (6-26); Blood Urea Nitrogen 18 mg/dL (6-20); Calcium 9.1 mg/dL (8.6-10.3); Carbon Dioxide 31 mEq/L (23-29); Chloride 98 mEq/L (98-107); Glucose 138 mg/dL (70-105); Magnesium 2.2 mg/dL (1.6-2.6); Osmolality,Calculated 288 (280-300); Potassium 4.3 mEq/L (3.5-5.1); Sodium 137 mEq/L (136-145); eGFR For African Americans > 60 (> 60); eGFR For Non-African Americans > 60 (> 60)
[2020-12-23] MEDS: Morphine Sulfate 2 MG/ML SYRINGE IVP PRN ×5 (04:53→23:51)
[2020-12-23] MEDS: *HR* Enoxaparin 40 MG/0.4 ML SYRINGE SQ SCH ×2 (04:53→18:42)
[2020-12-23] MEDS: MethylPREDNISolone 40 MG/ML VIAL IVP SCH ×2 (04:53→18:41)
[2020-12-23] MEDS: D5% in 0.9% NACL w KCl 20 MEQ/1,000 ML MLS IVC SCH (05:02)
[2020-12-23] MEDS: Levothyroxine 25 MCG TABLET PO SCH (06:42)
[2020-12-23 08:08] LABS: Phosphorous 3.5 mg/dL (2.7-4.5)
[2020-12-23] MEDS: Pantoprazole 40 MG VIAL IVP SCH (10:09)
[2020-12-23] MEDS: Chlorhexidine Rinse 15 ML MOUTHWASH MM SCH ×2 (10:09→20:34)
[2020-12-23] MEDS: Insulin DETEMIR 100 UNIT/ML X5UNITS SUBQ SCH ×2 (11:08→20:34)
[2020-12-23] MEDS: Dexmedetomidine HCl 400 MCG/100 ML MLS IVC SCH ×2 (11:27→18:43)
[2020-12-23] MEDS: D5% in 0.9% NACL 1,000 ML IVC SCH (14:32)
[2020-12-24 01:33] LABS: Basophils % 0.1 %; Eosinophils % 0.3 %; Hematocrit 35.7 % (37.5-50.1); Hemoglobin 10.9 g/dL (12.9-16.9); Immature Granulocytes % 0.3 % (0-4); Lymphocytes # 0.9 K/mcL (0.6-4.6); Lymphocytes % 12.8 %; Mean Corpuscular HGB Conc 30.5 g/dL (31.6-35.5); Mean Corpuscular Hemoglobin 27.5 pg (28.0-33.3); Mean Corpuscular Volume 89.9 fL (83.0-100.0); Mean Platelet Volume 10.1 fL (9.4-12.4); Monocytes # 0.5 K/mcL (0.0-1.3); Monocytes % 7.3 %; Neutrophils # 5.8 K/mcL (1.6-8.9); Platelet Count 207 K/mcL (140-400); Red Blood Count 3.97 M/mcL (4.19-5.50); Segmented Neutrophils % 79.2 %; White Blood Count 7.3 K/mcL (4.3-11.1)
[2020-12-24 01:41] LABS: VBG HCO3 32 mEq/L (21-27); VBG PCO2 50 mmHg (41-51); VBG PH 7.42 pH Units (7.32-7.42); VBG PO2 138 mmHg (25-50)
[2020-12-24 01:59] LABS: BUN/Creatinine Ratio 15 (6-26); Blood Urea Nitrogen 13 mg/dL (6-20); Calcium 8.8 mg/dL (8.6-10.3); Carbon Dioxide 29 mEq/L (23-29); Chloride 100 mEq/L (98-107); Glucose 153 mg/dL (70-105); Magnesium 2.1 mg/dL (1.6-2.6); Osmolality,Calculated 285 (280-300); Sodium 136 mEq/L (136-145); eGFR For African Americans > 60 (> 60); eGFR For Non-African Americans > 60 (> 60)
[2020-12-24] MEDS: Levothyroxine 25 MCG TABLET PO SCH (05:02)
[2020-12-24] MEDS: Insulin LISPRO 300 UNITS/3 ML VIAL SUBQ SCH ×5 (05:02→19:58)
[2020-12-24] MEDS: MethylPREDNISolone 40 MG/ML VIAL IVP SCH ×2 (05:44→17:07)
[2020-12-24] MEDS: *HR* Enoxaparin 40 MG/0.4 ML SYRINGE SQ SCH ×2 (05:44→17:08)
[2020-12-24] MEDS: Morphine Sulfate 2 MG/ML SYRINGE IVP PRN ×3 (06:46→19:57)
[2020-12-24] MEDS: Insulin DETEMIR 100 UNIT/ML X5UNITS SUBQ SCH ×2 (08:39→19:57)
[2020-12-24] MEDS: Chlorhexidine Rinse 15 ML MOUTHWASH MM SCH ×2 (08:40→19:58)
[2020-12-24] MEDS: Pantoprazole 40 MG VIAL IVP SCH (08:41)
[2020-12-24] MEDS: D5% in 0.9% NACL 1,000 ML IVC SCH (10:39)
[2020-12-24 11:11] VITALS: TEMP 98.4
[2020-12-24 19:48] VITALS: BP 152/94; PULSE 70; O2SAT 100
== END 2020-12-24 21:20 | DRG 5 ==
LOC: EMEROOARM 00:28 → 3NENU 00:28 → ICNU 19:16 → SUATTDRO 12-17 12:45 → 2NNU 12-20 18:13
PROVIDERS: ADMIT Family Medicine; ATTEND Pharmacist